=== PATIENT | female | born 1945 | race African-American/Black ===

== ENCOUNTER 2018-12-26 13:09 | Inpatient (IN) ==
[2018-12-26] MEDS ORDERED: ZOFRAN IV ONE (13:41)
[2018-12-26] MEDS ORDERED: NS 500 ML IV ONE (13:41)
--- NOTE | 2018-12-26 13:42 | PROVIDER DOCUMENTATION ---
HPI-Abdominal Pain/GI Problem - General Chief Complaint: Abdominal Pain Stated Complaint: ABD PAIN Time Seen by Provider: 12/26/18 13:35 Source: patient, family Allergies/Adverse Reactions: Patient Allergies Allergy/AdvReac Type Severity Reaction Status Date / Time No Known Allergies Allergy Verified 12/26/18 14:22 Home Medications: Home Medication List Medication Instructions Recorded Confirmed Last Taken Type NK [No Home Medications] 12/26/18 12/26/18 Unknown History - History of Present Illness-ABD Nature of Presenting Problems: 73yof presents to ED c/o abd pain with intermittent N/V and poor appetite x2 days. Family @ BS states pt was unable to eat today due to pain. She denies fever/chills/diarrhea/dysuria/cough/chest pain/back pain/dysuria. Abdominal Pain Onset Location: reports: generalized abdomen Pain Radiation: reports: no radiation Quality of Pain: reports: aching Onset/Duration: reports: gradual, 2 days ago Timing: reports: still present Activities at Onset: reports: none Exposure to sick contacts?: No Modifying Factors: improves with: eating Associated Symptoms: reports: nausea, vomiting. denies: cough, diarrhea, dizziness, fatigue, fever/chills, rash, shortness of breath, sensory/motor loss, syncope, weakness Last BM: 24 hours ago Dark Stools Present?: reports: none noticed Rectal Bleeding: reports: none Rectal Pain: reports: none Emesis Description: reports: none Bruising or Bleeding Gums?: No Similar Symptoms Previously?: No Recently seen or treated by another doctor?: No Review of Systems - Adult - REVIEW OF SYSTEMS - ADULT Constitutional: reports: no symptoms reported Eyes: reports: no symptoms reported Ears, Nose, Mouth & Throat: reports: no symptoms reported Cardiovascular: reports: no symptoms reported Respiratory: reports: no symptoms reported Gastrointestinal: reports: see HPI, abdominal pain, nausea, poor appetite, vomiting Genitourinary: reports: no symptoms reported Musculoskeletal: reports: no symptoms reported Integumentary: reports: no symptoms reported Neurological: reports: no symptoms reported Psychiatric: reports: no symptoms reported Endocrine: reports: no symptoms reported Hematologic/Lymphatic: reports: no symptoms reported Allergic/Immunologic: reports: no symptoms reported All Other Systems: Reviewed and Negative Past History - Adult - PAST MEDICAL HISTORY-ADULT Review of Records: reports: Old Records Reviewed, Nursing Assessment Review, Medications Reviewed, Social history reviewed & non-contributory. Major Childhood Illnesses: reports: denies history Cardiovascular: reports: denies history Respiratory: reports: bronchitis, pneumonia Gastrointestinal: reports: denies history Obstetrical/Gynecological: reports: denies history Genitourinary: reports: denies history Musculoskeletal: reports: denies history Neurological: reports: denies history Endocrine/Immune: reports: denies history Other Conditions: reports: denies history - PRIOR SURGERIES/PROCEDURES Surgical/Procedure History: reports: reviewed, not pertinent - IMMUNIZATION STATUS Childhood Immunizations: See Nurse Assessment Flu Vaccine: See Nurse Assessment - SOCIAL HISTORY Smoking: non-smoker Living Situation: family Physical Exam-General - CONSTITUTIONAL General Appearance: appears well, alert, no apparent distress - EYES Eyes: PERRL/EOMI, pink conjunctivae - HEAD, EARS, NOSE, MOUTH & THROAT HENMT: normocephalic/atraumatic, moist mucous membranes, normal ENT inspection - NECK Neck: non-tender, full range of motion, supple, normal inspection - RESPIRATORY Respiratory: chest non-tender, lungs clear, normal breath sounds, no pleuratic chest pain, no respiratory distress, no accessory muscle use - CARDIOVASCULAR Cardiovascular: normal peripheral pulses, regular rate, rhythm, no edema, no gallop, no JVD - GASTROINTESTINAL (ABDOMEN) Abdominal Exam: normal bowel sounds, soft, no organomegaly, tenderness (mild nonspecific upper abd tenderness with palpation, no RT/rigidity/distention) - LYMPHATIC Lymphatic: no adenopathy - MUSCULOSKELETAL Back Exam: normal inspection, no CVA tenderness, no vertebral tenderness Extremity: normal range of motion, non-tender, normal gait, normal inspection - SKIN Integumentary: normal color, normal turgor, warm/dry - NEUROLOGIC Neurologic: advanced practice psychiatric nurse II-XII nml as tested, grossly normal, no motor/sensory deficits - PSYCHIATRIC Psych/Mental Status: normal mood/affect, normal thought content, normal thought process, oriented x 3 Progress - PLAN OF CARE/RESULTS Progress/Plan/Lab Results: Vital Signs - 8 hr 12/26/18 13:21 Temperature 98.9 F Pulse Rate 87 Respiratory Rate 16 Blood Pressure 166/103 O2 Sat by Pulse Oximetry 95 Orders Category Date Time Status AMYLASE [CHEM] Stat Lab 12/26/18 13:26 Ordered CBC WITH DIFF [HEME] Stat Lab 12/26/18 13:26 Ordered COMPREHENSIVE METABOLIC PANEL [CHEM] Stat Lab 12/26/18 13:26 Uncollected LIPASE [CHEM] Stat Lab 12/26/18 13:26 Uncollected ua [URINALYSIS PL W/POSS RFLX CULT] [URINALYSIS] Stat Lab 12/26/18 13:26 Uncollected Result Diagrams: 12/26/18 15:18 12/26/18 15:18 - REASSESSMENT Reassessment #1 Time Reassessed: 15:07 (Awaiting lab results.) Reassessment #2 Time Reassessed: 15:43 (Received labs; pt with marked change in LFTs since prior visit. Given today's CC of N/V, poor po intake, and abd pain CT with IV contrast ordered.) Reassessment #3 Time Reassessed: 16:23 (Await[address] CT results. IV Rocephin ordered for UTI.) - CT/MRI 1 CT Study: Abdomen, Pelvis Impression: See EMR Report - CONSULTS/PCP/HOSPITALIST Notification #1 *Consult/PCP/Hospitalist*: dr rojas Time Discussed: 17:06 Consult Disposition: Will see in ED, Admit - CHANGE OF SHIFT REPORT (ED Provider) 1 Report Given and Care Transferred to:: Khushbu RODNEY Time of Transfer: 16:45 Items Pending: CT/MRI Results (CT Abd/Pelvis results pending.) Departure - Departure Date of Disposition Decision: 12/26/18 Time of Disposition Decision: 17:06 DIAGNOSIS: Hypokalemia, Abnormal liver function tests, Gallstones Abdominal pain Qualifiers: Abdominal location: generalized Qualified Code(s): R10.84 - Generalized abdominal pain Urinary tract infection Qualifiers: Urinary tract infection type: acute cystitis Hematuria presence: without hematuria Qualified Code(s): N30.00 - Acute cystitis without hematuria Vomiting Qualifiers: Vomiting type: unspecified Vomiting Intractability: non-intractable Nausea presence: with nausea Qualified Code(s): R11.2 - Nausea with vomiting, unspecified Disposition: ADMITTED INPATIENT 09 Certified Medical Emergency: Emergent Condition: Stable Referrals and Follow-Ups: None,PCP [Primary Care Provider] - Discharge Education: Steps to Quit Smoking, [id number] - Critical Care Note This patient required my direct & personal management of CC.: No Attestation - Physician/ JOVANA Attestation Patient care was provided by Advanced Practice Provider:: Yes Advanced Practice Provider:: Reena Dillard Advanced Practice Provider documentation review:: The Mid-level provider d ocumentation, treatment plan and medical decision making was reviewed by the physician who agrees with all treatment and medical decision making by the MLP. The physician spent face to face time with patient:: No Advanced Practice Provider documentation review:: Supervising physician onsite and consulted in the evaluation and care of this patient. The physician did not have a face to face encounter with the patient.
[2018-12-26 15:36] LABS: AGAP 11; ALBUMIN 3.6 g/dL (3.5-5.0); ALKALINE PHOSPHATASE 208 U/L (32-104); BUN 10 mg/dL (8-22); CALCIUM 8.7 mg/dL (8.8-10.2); CHLORIDE 100 mmol/L (98-107); COSMO 280; CREATININE 0.4 mg/dL (0.5-0.9); ESTIMATED GFR > 60; GLUCOSE 125 mg/dL (70-104); GOT 292 U/L (10-30); GPT 152 U/L (10-36); LIPASE 8 U/L (13-60); POTASSIUM 3.3 mmol/L (3.5-5.1); SODIUM 140 mmol/L (136-145); TCO2 29 mmol/L (25-35); TOTAL PROTEIN 7.4 g/dL (6.3-8.3)
[2018-12-26 15:37] LABS: BASO# 0.04 X1000 (0.0-0.2); BASO% 0.5 % (0.0-0.8); HEMATOCRIT 37.2 % (37.0-47.0); HEMOGLOBIN 12.9 g/dL (12.0-16.0); IMM GRAN# 0.03 X1000 (0.0-0.04); IMM GRAN% 0.4 % (0.0-0.5); LYMPH% 15.5 % (20.5-51.1); MCH 28.5 PG (27-31); MCHC 34.7 g/dL (33-37); MCV 82.1 FL (81-99); MONO# 0.83 X1000 (0.11-0.59); MONO% 9.9 % (1.7-9.3); MPV 9.6 FL (7.4-10.4); NEUT# 6.18 X1000 (1.4-6.5); NEUT% 73.7 % (42.2-75.2); PLT 267 X1000 (130-400); RBC 4.53 XMIL (4.2-5.4); RDW 15.5 % (11.5-14.5); WBC 8.38 X1000 (4.8-10.8)
[2018-12-26 15:53] LABS: BILIRUBIN URINE 2+ (NEGATIVE); BLOOD URINE 4+ (NEGATIVE); GLUCOSE URINE NEGATIVE (NEGATIVE); KETONE URINE 1+(Small) mg/dL (NEGATIVE); LEUKOCYTES URINE 1+ (NEGATIVE); NITRITE URINE NEGATIVE (NEGATIVE); PH URINE 6.5; PROTEIN URINE 1+(30 mg/dL) mg/dL (NEGATIVE); UROBILINOGEN URINE 12 mg/dL
[2018-12-26 15:54] LABS: CLARITY SL. CLOUDY (CLEAR); COLOR AMBER
[2018-12-26 16:10] LABS: URINE SOURCE CLEAN CATCH
[2018-12-26 16:11] LABS: URINE RBC TNTC /HPF (<10)
[2018-12-26 16:12] LABS: URINE EPITHELIAL CELLS >10 /HPF (<10)
[2018-12-26 16:14] LABS: URINE BACTERIA 2+ /HFP; URINE CAST NONE SEEN /LPF; URINE CRYSTAL URIC ACID PRESENT /HPF; URINE YEAST NONE SEEN /HPF
[2018-12-26] MEDS ORDERED: ROCEPHIN 1 GM in NS 50 ML IV ONE (16:22)
[2018-12-26] MEDS ORDERED: KLOR-CON PO ONE (16:22)
[2018-12-26 16:47] LABS: ANISOCYTOSIS OCCASIONAL; LYMPHS 13 % (21-51); MONO 4 % (1-9); SEGS 79 % (42-75)
--- NOTE | 2018-12-26 17:04 | Diag Imaging Result Doc PS360 ---
EXAM: CT ABD/PELVIS W/IV CONT ONLY HISTORY: vomiting, abdominal pain, abnormal LFTs TECHNIQUE: CT abdomen and pelvis with and without IV contrast. Patient's arms are by his side creating significant artifact. Noncontrasted images were submitted for the COMPARISON: None. FINDINGS: Noncontrasted images demonstrate cholelithiasis and choledocholithiasis with calcification in the region of the intrapancreatic common bile duct. Image 44 sequence 2. There is associated intra and extrahepatic biliary ductal dilatation to 11 mm. There is enhancement versus edema of the gallbladder wall and common bile duct. There are atelectatic changes in the bilateral lung bases. There is considerable streak artifact over the liver. Difficult to exclude a focal liver mass. There is bilateral nephrolithiasis. No hydronephrosis. There are hypodensities bilateral kidneys statistically simple cortical cysts. Pancreas, adrenal glands, and spleen are unremarkable. 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 There is a right lateral intraluminal thrombus within the aorta which extends into and occludes the right common iliac artery. Uterus is surgically absent. Small amount of free fluid within the pelvis. There is diverticulosis. No evidence for diverticulitis. Appendix appears normal. Bowel loops are normal caliber. No free air is appreciated. This report was discussed with Nati in the ED on 12/26/2018 at 5:00 PM with read back verification. IMPRESSION: 1.Choledocholithiasis producing marked intra and extrahepatic biliary ductal dilatation consistent with distal duct obstruction. Cholelithiasis with associated wall enhancement may indicate acute cholecystitis and cholangitis. 2.Streak artifact produces suboptimal visualization of the liver and focal liver masses are not excluded. 3.Consider right upper quadrant ultrasound. 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 5.Bilateral nephrolithiasis. No hydronephrosis. 6.Trace free fluid within the pelvis. This exam was performed using automated exposure control, adjustment of mA or kV according to patient size, and/or use of iterative reconstruction technique. Electronically signed by Cynthia Rollins 12/26/2018 5:02 PM
[2018-12-26] MEDS ORDERED: ZOFRAN IV PRN ×2 (17:16)
[2018-12-26] MEDS ORDERED: MORPHINE IV PRN (17:16)
[2018-12-26] MEDS: ZOSYN 3.375 GM in NS 50 ML IV SCH (17:36)
[2018-12-26] MEDS: NS 1,000 ML IV SCH (17:36)
--- NOTE | 2018-12-26 18:32 | HISTORY AND PHYSICAL ---
CHIEF COMPLAINT: Abdominal pain. HISTORY OF PRESENT ILLNESS: This is a 73-year-old female who is a poor historian and may have dementia, who was brought to the ER by her . He reports she has had complaints of right- sided abdominal pain for over a week, with persistent groaning, as well as intermittent nausea and vomiting. Her bowel movements have been normal. He has not noticed any shaking chills or fever. No known exacerbating or relieving factors. No known diarrhea or constipation. PAST MEDICAL HISTORY: None, according to him, except for dementia. PRIMARY CARE PHYSICIAN: She does not have a primary care physician. PAST SURGICAL HISTORY: Hysterectomy. HOME MEDICINES: None. ALLERGIES: No known drug allergies. FAMILY HISTORY: Reviewed and noncontributory. SOCIAL HISTORY: She smokes a pack of cigarettes a week. Denies alcohol or illicit drug use. REVIEW OF SYSTEMS: Really unobtainable as she seems quite confused. PHYSICAL EXAMINATION: VITAL SIGNS: Temperature 99.1 degrees, pulse 86, respirations 18, blood pressure 159/102, O2 saturation 95%. GENERAL: She is an elderly female who appears ill, but in no acute distress. HEENT: Normocephalic, atraumatic. Extraocular muscles intact. Pupils equal, round, reactive to light. Sclerae anicteric. Mucous membranes are dry. NECK: Supple. No thyromegaly. CARDIOVASCULAR: Regular rate and rhythm. RESPIRATORY: Bilateral breath sounds. No work of breathing. GASTROINTESTINAL: Soft, nondistended, diffusely tender. No rebound or guarding. No organomegaly or mass. EXTREMITIES: No clubbing, cyanosis, or edema. SKIN: Warm and dry. No rash. MUSCULOSKELETAL: Moves all extremities equally and well. LABORATORY: White blood cell count 8, hemoglobin 12.9, hematocrit 37, platelet count 267,000. Complete metabolic profile reviewed and notable for total bilirubin 5.2, AST 292, ALT 152, alkaline phosphatase 208, amylase 39, lipase 8. Urinalysis shows 2+ bacteria, 1+ white blood cells, but negative nitrite. IMAGING: Abdomen and pelvis CT scan shows cholelithiasis and choledocholithiasis. There is intra- and extrahepatic biliary ductal dilation. The gallbladder wall appears to be thickened as well as the common bile duct. There is a small amount of free fluid in the pelvis. No free air. Bowel loops are normal in caliber. The appendix is normal. No diverticulitis. Of note, there is also distal aortic ectasia with occluded right common iliac artery. ASSESSMENT AND PLAN: A 73-year-old female with acute cholecystitis and choledocholithiasis. She will be admitted, kept NPO, given normal saline, and started on Zosyn, as well as treating her pain and nausea. We will consult Gastroenterology for expected ERCP this admission. We will recheck her labs in the morning and plan laparoscopic cholecystectomy versus ERCP first tomorrow. I have discussed this with her and her , and he understands and agrees. cc: Jose Luis Kumari MD
[2018-12-26 19:52] LABS: AGAP 13; ALB/GLOB RATIO 0.9; ALBUMIN 3.4 g/dL (3.5-5.0); ALKALINE PHOSPHATASE 196 U/L (32-104); BASO# 0.03 X1000 (0.0-0.2); BASO% 0.4 % (0.0-0.8); BUN 9 mg/dL (8-22); CHLORIDE 101 mmol/L (98-107); COSMO 279; CREATININE 0.7 mg/dL (0.5-0.9); EOS# 0.02 X1000 (0.0-0.7); EOS% 0.2 % (0.0-10.0); ESTIMATED GFR > 60; GLUCOSE 118 mg/dL (70-104); GOT 240 U/L (10-30); GPT 145 U/L (10-36); HEMATOCRIT 37.4 % (37.0-47.0); HEMOGLOBIN 13.1 g/dL (12.0-16.0); IMM GRAN# 0.02 X1000 (0.0-0.04); IMM GRAN% 0.2 % (0.0-0.5); LYMPH# 1.28 X1000 (1.2-3.4); LYMPH% 15.4 % (20.5-51.1); MCH 28.4 PG (27-31); MCV 81.1 FL (81-99); MONO# 0.78 X1000 (0.11-0.59); MONO% 9.4 % (1.7-9.3); MPV 9.9 FL (7.4-10.4); NEUT# 6.18 X1000 (1.4-6.5); NEUT% 74.4 % (42.2-75.2); PLT 297 X1000 (130-400); POTASSIUM 3.6 mmol/L (3.5-5.1); RBC 4.61 XMIL (4.2-5.4); RDW 15.5 % (11.5-14.5); SODIUM 140 mmol/L (136-145); TCO2 26 mmol/L (25-35); TOTAL BILIRUBIN 5.31 mg/dL (0.20-1.00); TOTAL PROTEIN 7.4 g/dL (6.3-8.3); WBC 8.31 X1000 (4.8-10.8)
[2018-12-26] MEDS ORDERED: PNEUMOVAX 23 IM ONE (19:59)
[2018-12-26 21:04] LABS: URINE SOURCE CLEAN CATCH
[2018-12-26 21:09] LABS: BILIRUBIN URINE SMALL (NEGATIVE); BLOOD URINE MODERATE (NEGATIVE); COLOR YELLOW; GLUCOSE URINE NEGATIVE (NEGATIVE); KETONE URINE NEGATIVE (NEGATIVE); LEUKOCYTES URINE NEGATIVE (NEGATIVE); NITRITE URINE NEGATIVE (NEGATIVE); PH URINE 7.5; PROTEIN URINE TRACE mg/dL (NEGATIVE); TURBIDITY URINE CLEAR (CLEAR); UROBILINOGEN URINE 3 mg/dL (NORMAL)
[2018-12-26 21:11] LABS: UR EPITHELIAL CELLS <10 /HPF (<10); URINE BACTERIA NEGATIVE /HPF; URINE RBC 20-40 /HPF (<10); URINE WBC <10 /HPF (<10)
[2018-12-27] MEDS: ZOSYN 3.375 GM in NS 50 ML IV SCH ×5 (00:03→22:39)
[2018-12-27] MEDS: NS 1,000 ML IV SCH ×2 (05:25→22:38)
[2018-12-27 10:17] LABS: AGAP 12; ALB/GLOB RATIO 0.8; ALBUMIN 3.1 g/dL (3.5-5.0); ALKALINE PHOSPHATASE 192 U/L (32-104); BUN 9 mg/dL (8-22); CALCIUM 8.4 mg/dL (8.8-10.2); CHLORIDE 107 mmol/L (98-107); COSMO 286; CREATININE 0.7 mg/dL (0.5-0.9); ESTIMATED GFR > 60; GLUCOSE 106 mg/dL (70-104); GOT 161 U/L (10-30); GPT 122 U/L (10-36); POTASSIUM 3.6 mmol/L (3.5-5.1); SODIUM 144 mmol/L (136-145); TCO2 25 mmol/L (25-35); TOTAL BILIRUBIN 6.94 mg/dL (0.20-1.00); TOTAL PROTEIN 7.1 g/dL (6.3-8.3)
[2018-12-27] MEDS ORDERED: SODIUM CHLORIDE 0.9% ONE (11:58)
[2018-12-27] MEDS ORDERED: SENSORCAINE 0.5%-EPI 1:200,000 ONE (11:58)
[2018-12-27] MEDS ORDERED: LR 1,000 ML ONE (11:59)
[2018-12-27] MEDS ORDERED: DIPRIVAN 1% ONE (12:27)
[2018-12-27] MEDS ORDERED: XYLOCAINE-MPF 2% ONE (12:33)
[2018-12-27] MEDS ORDERED: ROBINUL ONE ×2 (12:33→16:46)
[2018-12-27] MEDS ORDERED: QUELICIN (DOSE) ONE (12:33)
[2018-12-27] MEDS ORDERED: FENTANYL ONE (12:43)
[2018-12-27] MEDS ORDERED: LOPRESSOR ONE (13:04)
--- NOTE | 2018-12-27 14:48 | GASTROENTEROLOGY CONSULTATION ---
DATE: 12/27/2018 ATTENDING PHYSICIAN: Dr. Kumari. PRIMARY CARE DOCTOR: None. REASON FOR CONSULTATION: Choledocholithiasis. HISTORY OF PRESENT ILLNESS: Ms. Aguilar is a 73-year-old female who was admitted on 12/26/2018 for abdominal pain in the right upper quadrant and radiating to the back. According to the patient, this pain has been going on for 1 week. She also has intermittent nausea and vomiting. She denies any vomiting blood. She denies any blood in the stools. She had imaging done in the hospital which showed evidence of choledocholithiasis, and intra and extrahepatic biliary ductal dilation. The CT scan also showed evidence of cholelithiasis. The gallbladder wall appears to be thickened as well as the common bile duct appears to be dilated. There was a small amount of free fluid in the pelvis. The patient also had evidence of distal aortic ectasia with occluded right common iliac artery. The patient was admitted by Dr. Kumari. He is planning for a cholecystectomy today. We will be on standby for possible ERCP. PAST MEDICAL HISTORY: None. PAST SURGICAL HISTORY: Hysterectomy. HOME MEDICATIONS: None. ALLERGIES: No known drug allergies. FAMILY HISTORY: Noncontributory. SOCIAL HISTORY: She smokes 1 pack of cigarettes a week. Denies a history of alcohol or illicit drug abuse. REVIEW OF SYSTEMS: Denies any fevers, rigors, or chills. Denies any chest pain or shortness of breath. Denies any vomiting blood. Does complain of abdominal pain, intermittent nausea, vomiting. Denies seeing blood in the stools. Denies any bowel changes. Denies any neurological complaints. PHYSICAL EXAMINATION: Vital Signs: Temperature of 99 degrees, pulse rate of 79, respiratory rate of 16, blood pressure 130/69, saturating 97% on room air. Body weight of 165 pounds. BMI 25.1 kg/m2. General Appearance: Moderately built, moderately nourished, lying in bed, in no acute distress. HEENT: No pallor. Icteric sclerae. Pupils equal, reactive to light. Neck: Supple. Abdomen: Discomfort in the right upper quadrant. No rebound or guarding. Extremities: No cyanosis, clubbing. Neurologic: Alert, awake, oriented x3. LABS: Hemoglobin and hematocrit are 13.1 and 37.4, white count of 8.31, platelet count of 97,000. Her sodium is 140, potassium 3.6, chloride 107, bicarb of 25, anion gap 12, BUN of 9, creatinine 0.7, glucose of 106, calcium is 8.4. AST 161, ALT 122, alkaline phosphatase 192, total protein 7.2, albumin 3.1, amylase of 39, lipase of 8. Urinalysis showing trace protein, moderate blood, small bilirubin, and 20 to 40 RBCs. Urine culture showing no growth. CT of the abdomen and pelvis showed atelectatic changes in the bilateral lung bases, considerable streak artifact over the liver, difficult to exclude a focal liver mass, bilateral nephrolithiasis, no hydronephrosis, simple cortical cysts noted in the kidneys, distal aortic ectasia to 2.5 cm. There is the right lateral intraluminal thrombus within the aorta which extends into and occludes the right common iliac artery. Uterus surgically absent. Small amount of free fluid in the pelvis. There is diverticulosis in the colon. Appendix appears normal. No free air was noted. There is evidence of intrahepatic and extrahepatic biliary ductal dilation up to 11 mm. There is evidence of cholelithiasis and choledocholithiasis with calcification in the intrapancreatic common bile duct. There is enhancement versus edema of the gallbladder wall and common bile duct. IMPRESSION AND PLAN: 1. Cholelithiasis. 2. Choledocholithiasis. 3. Jaundice. 4. Right upper quadrant pain, nausea, and vomiting. 5. 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 RECOMMENDATIONS: 1. She will continue on IV fluids. She is currently NPO. She is likely going for cholecystectomy today. She will continue on IV pain control, IV antiemetics, and IV antibiotics with Zosyn. She is going for cholecystectomy today. We will be on standby if needed for an ERCP tomorrow with Dr. Fuentes. The procedure of ERCP was explained to the patient and all questions were answered. The risks, benefits, and indications for ERCP were explained to the patient all questions were answered. 2. The above plans were discussed with the patient. All questions were answered. Please call us with any further questions. cc: MD Jose Luis Monteiro MD [facility]
[2018-12-27] MEDS ORDERED: ZEMURON ONE (15:27)
[2018-12-27] MEDS ORDERED: OFIRMEV 1000 MG/ISOTONIC SOLN 1,000 MG/100 ML BOTTLE ONE (15:41)
--- NOTE | 2018-12-27 16:42 | Diag Imaging Result Doc PS360 ---
OPERATIVE CHOLANGIOGRAM - 12/27/2018 INDICATION: GALLBLADDER TECHNIQUE: The exam was performed with the patient's surgeon. Two images were submitted. COMPARISON: CT abdomen pelvis 12/26/2018 FINDINGS: Contrast was infused into the common bile duct. The intrahepatic bile ducts are well opacified. There is severe dilation of the entire intrahepatic bile ducts. No obvious filling defect within the common bile duct. There is good reflux of contrast into the duodenum. There is also reflux into the main pancreatic duct which appears normal. IMPRESSION: Significant, diffuse dilation of all the intrahepatic bile ducts from chronic obstruction. No focal abnormality of the common bile duct. Electronically signed by Toribio Reynolds 12/27/2018 4:40 PM
[2018-12-27] MEDS ORDERED: NEOSTIGMINE ONE (16:47)
[2018-12-27 17:34] LABS: URINE SOURCE CATH
[2018-12-27 17:37] LABS: BILIRUBIN URINE MODERATE (NEGATIVE); BLOOD URINE MODERATE (NEGATIVE); COLOR YELLOW; GLUCOSE URINE NEGATIVE (NEGATIVE); KETONE URINE 40 mg/dL (NEGATIVE); LEUKOCYTES URINE NEGATIVE (NEGATIVE); NITRITE URINE NEGATIVE (NEGATIVE); PROTEIN URINE TRACE mg/dL (NEGATIVE); SP GRAVITY URINE 1.016; TURBIDITY URINE CLEAR (CLEAR); UR EPITHELIAL CELLS <10 /HPF (<10); URINE BACTERIA NEGATIVE /HPF; URINE RBC <10 /HPF (<10); URINE WBC <10 /HPF (<10); UROBILINOGEN URINE 2 mg/dL (NORMAL)
[2018-12-27] MEDS: MORPHINE IV PRN (18:53)
--- NOTE | 2018-12-27 19:52 | OPERATIVE NOTE ---
PROCEDURE DATE: 12/26/2018 PREOPERATIVE DIAGNOSES: 1. Acute cholecystitis next. 2. Choledocholithiasis. POSTOPERATIVE DIAGNOSIS: 1. Acute cholecystitis next. 2. Choledocholithiasis PROCEDURES: 1. Laparoscopic converted to open cholecystectomy with operative cholangiogram. 2. Open common bile duct exploration with stone retrieval. SURGEON: 1. Jose Luis Kumari MD. MECHANICAL ENGINEERING LECTURER: 1. Seb Perez MD. 2. Mena Larson MS 3. ANESTHESIA: General. ESTIMATED BLOOD LOSS: 200 mL. COMPLICATIONS: None apparent. SPECIMENS: Gallbladder and stones. FINDINGS: The gallbladder was acutely inflamed with a large stone in the wound. There was also a large stone impacted in the common duct. DRAINS: 1. One #19 Gael. 2. One 18-Swedish T-tube TECHNIQUE: The patient was brought to the operating room and placed supine on the table. General anesthesia was induced. She was prepped and draped in usual sterile fashion. 0.25% Marcaine with epinephrine was used to anesthetize our incisions. An 11 mm incision was made above the umbilicus. The fascia was exposed and incised sharply. Entry into the peritoneal cavity was obtained under direct vision with the Optiview device. Pneumoperitoneum was established. The camera was inserted. There was no evidence of injury to underlying structures. She was placed in reverse Trendelenburg. Three 5 mm incision ports were placed across the epigastric right upper quadrant per usual routine. The dome of the gallbladder was grasped by the collections assistant with an Allis clamp and lifted up superiorly. The inflammation of the gallbladder wall was intense. I began with using a Kittner dissector to try to open the peritoneum over the triangle of Calot and then for quite some time I worked to identify the critical view. I was able to identify the cystic artery and a small pulsatile structure entering directly into the gallbladder. It was clipped proximally and distally and incised with scissors; however, I could not clearly define the cystic duct/common duct anatomy and decided to open. I made an oblique right upper quadrant incision using 2 of our port sites that we had already established. The ports were removed. The abdomen was desufflated. The subcutaneous tissue was divided with cautery. The fascia was opened with cautery, safely entering the abdominal cavity. Dr. Perez joined me during this portion of the case and was very helpful with identifying the critical anatomy as well as well as assisting with the common duct exploration and repair over a T-tube. I proceeded to take the gallbladder in a dome-down fashion with cautery. The cystic duct was very small and friable and was seen to tease away from the common duct. I could feel the large stone impacted in the common duct just distal to the presumed cystic duct junction I decided to go ahead and do a common duct exploration and remove the stone. A ductotomy was made with a 15 blade over the stone, and the stone was milked out of the duct. I then selected an 18-Swedish T-Tube and placed it into the duct after trimming the limbs of the T. I should also point out that we did ligate the presumed cystic duct with 3-0 silk proximally and divided it distally with scissors and passed the gallbladder off the field. I then injected saline through the G-tube into the duct. There appeared to be leakage of saline proximally from the presumed cystic duct/common duct junction in this area. I repaired the cystic duct with interrupted 4-0 Prolene. I then closed the cystic duct around the T- tube with interrupted 4-0 Prolene. I then injected saline again. There did not appear to be any significant leakage. At this point we then performed a cholangiogram and there was flow of contrast seen entering all the hepatic radicals, as well as flow of contrast filling up the distal common duct entering the duodenum. There were no more filling defects. The common and hepatic ducts appeared to be chronically dilated. At this point, we prepared for closure. I washed out the abdomen and removed all laparotomy pads and made sure the laparotomy pad and instrument counts were correct. I brought in a 19 Gael drain through the lateral port site incision and laid it adjacent to the duct along the right pericolic gutter. The T-tube end was brought out through a separate incision inferior to the main incision. These 2 drains were anchored to the skin with 2- 0 nylon x2. I then closed the posterior fascia and peritoneum with a running #1 Vicryl and the anterior fascia a running #1 looped Maxon. The skin was closed with skin clips including the umbilical skin. She was awakened in stable condition and transferred to the recovery room without apparent complication. cc: Jose Luis Kumari MD [facility]
[2018-12-28] MEDS: MORPHINE IV PRN (04:36)
[2018-12-28] MEDS: ZOSYN 3.375 GM in NS 50 ML IV SCH ×3 (04:36→18:50)
[2018-12-28 05:45] LABS: HEMATOCRIT 30.3 % (37.0-47.0); HEMOGLOBIN 10.4 g/dL (12.0-16.0); MCH 28.8 PG (27-31); MCHC 34.3 g/dL (33-37); MCV 83.9 FL (81-99); MPV 10.6 FL (7.4-10.4); RBC 3.61 XMIL (4.2-5.4); RDW 15.3 % (11.5-14.5); WBC 9.87 X1000 (4.8-10.8)
[2018-12-28 05:56] LABS: AGAP 11; ALBUMIN 2.9 g/dL (3.5-5.0); ALKALINE PHOSPHATASE 150 U/L (32-104); BUN 11 mg/dL (8-22); CALCIUM 8.2 mg/dL (8.8-10.2); CHLORIDE 109 mmol/L (98-107); COSMO 287; CREATININE 0.5 mg/dL (0.5-0.9); ESTIMATED GFR > 60; GLUCOSE 107 mg/dL (70-104); GOT 139 U/L (10-30); GPT 101 U/L (10-36); POTASSIUM 3.3 mmol/L (3.5-5.1); SODIUM 144 mmol/L (136-145); TCO2 24 mmol/L (25-35); TOTAL BILIRUBIN 3.23 mg/dL (0.20-1.00); TOTAL PROTEIN 5.9 g/dL (6.3-8.3)
[2018-12-28] MEDS ORDERED: ZOSYN ONE (08:40)
[2018-12-28] MEDS: PERIDEX MT SCH ×2 (10:29→22:16)
[2018-12-28] MEDS: NS 1,000 ML IV SCH (10:30)
--- NOTE | 2018-12-28 10:47 | GENERAL SURGERY PROGRESS NOTE ---
DATE: 12/28/2018 SUBJECTIVE: The patient is not very talkative this morning, but no acute events were recorded overnight. OBJECTIVE: Vital Signs: She is afebrile. Vital signs are stable. General: She is awake, alert, no acute distress. Gastrointestinal: Soft, appropriately tender. Incisional dressing is clean and dry. ELIZ drain is serosanguineous. T-Tube is bilious. The outputs are not recorded. LABORATORY: White blood cell count 9.8, hemoglobin 10, hematocrit 30. Electrolytes reviewed and notable for decreasing LFTs, total bilirubin 3.2, AST 139, ALT 101, alkaline phosphatase 150. ASSESSMENT AND PLAN: A 73-year-old female postoperative day 1 open cholecystectomy with common bile duct exploration. We will advance her diet as tolerated. Consult Physical Therapy to work with her and keep her drains in throughout this admission. cc: Jose Luis Kumari MD
--- NOTE | 2018-12-28 23:22 | PROVIDER PROGRESS NOTE ---
Progress Note S: Patient underwent O: Last Vital Signs Temp 98.1 F 12/29/18 04:15 Pulse 75 12/29/18 04:15 Resp 20 12/29/18 04:15 BP 141/79 12/29/18 04:15 Pulse Ox 96 12/29/18 04:15 Height 5 ft 8 in Weight 165 lb GEN: awake, alert, NAD HEENT: mild icterus, EOMI, MMM NECK: supple, no JVD CV: RRR, no murmurs PULM: CTAB ABD: dressing RUQ c/d/i, ELIZ drain in place, ND, TTP throughout with voluntary guarding, hypoactive BS EXT: no cce NEURO: nonfocal LABS: 12/28/18 12/28/18 04:52 04:52 WBC 9.87 Hgb 10.4 L D Plt Count 226 Sodium 144 Potassium 3.3 L Chloride 109 H Carbon Dioxide 24 L BUN 11 Creatinine 0.5 Total Bilirubin 3.23 H AST 139 H ALT 101 H Alkaline Phosphatase 150 H Total Protein 5.9 L Albumin 2.9 L 12/27 POSTOPERATIVE DIAGNOSIS: 1. Acute cholecystitis next. 2. Choledocholithiasis PROCEDURES: 1. Laparoscopic converted to open cholecystectomy with operative cholangiogram. 2. Open common bile duct exploration with stone retrieval. IMPRESSION AND PLAN: 1. Cholelithiasis. 2. Choledocholithiasis. 3. Jaundice. 4. Right upper quadrant pain, nausea, and vomiting. 5. 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 OPERATIVE CHOLANGIOGRAM - 12/27/2018 INDICATION: GALLBLADDER TECHNIQUE: The exam was performed with the patient's surgeon. Two images were submitted. COMPARISON: CT abdomen pelvis 12/26/2018 FINDINGS: Contrast was infused into the common bile duct. The intrahepatic bile ducts are well opacified. There is severe dilation of the entire intrahepatic bile ducts. No obvious filling defect within the common bile duct. There is good reflux of contrast into the duodenum. There is also reflux into the main pancreatic duct which appears normal. IMPRESSION: Significant, diffuse dilation of all the intrahepatic bile ducts from chronic obstruction. No focal abnormality of the common bile duct. A/P: Ms. Macey Aguilar is a 73 year old woman who was admitted with acute cholecystitis and choledocholithiasis who is s/p POD#1 of open cholecystectomy with operative cholangiogram & common bile duct exploration with stone retrieval. Her LFTs are decreased this AM. She is on zosyn and tolerating clear liquids. # Acute cholecystitis: s/p open CCY: defer mgmt to surgery; on abx # Choledocholithiasis: s/p CBD exploration and stone removal. IOC negative for residual stones; notable intrahepatic dilation; trending LFTs; if LFTs do not continue to improve, may need MRCP # Anemia: no overt GI bleeding Will follow with you.
[2018-12-29] MEDS: ZOSYN 3.375 GM in NS 50 ML IV SCH ×4 (02:03→20:20)
[2018-12-29 05:57] LABS: BASO# 0.03 X1000 (0.0-0.2); BASO% 0.2 % (0.0-0.8); EOS# 0.25 X1000 (0.0-0.7); HEMATOCRIT 27.8 % (37.0-47.0); HEMOGLOBIN 9.7 g/dL (12.0-16.0); IMM GRAN# 0.07 X1000 (0.0-0.04); IMM GRAN% 0.6 % (0.0-0.5); LYMPH# 2.12 X1000 (1.2-3.4); LYMPH% 16.9 % (20.5-51.1); MCHC 34.9 g/dL (33-37); MCV 83.2 FL (81-99); MONO# 1.33 X1000 (0.11-0.59); MONO% 10.6 % (1.7-9.3); MPV 11.5 FL (7.4-10.4); NEUT# 8.78 X1000 (1.4-6.5); NEUT% 69.7 % (42.2-75.2); PLT 225 X1000 (130-400); RBC 3.34 XMIL (4.2-5.4); RDW 15.5 % (11.5-14.5); WBC 12.58 X1000 (4.8-10.8)
[2018-12-29 06:14] LABS: LYMPHS 20 % (21-51); SEGS 74 % (42-75)
[2018-12-29 06:20] LABS: AGAP 8; BUN 8 mg/dL (8-22); CALCIUM 8.4 mg/dL (8.8-10.2); CHLORIDE 113 mmol/L (98-107); COSMO 293; CREATININE 0.5 mg/dL (0.5-0.9); ESTIMATED GFR > 60; GLUCOSE 109 mg/dL (70-104); SODIUM 148 mmol/L (136-145); TCO2 27 mmol/L (25-35)
[2018-12-29] MEDS: NS 1,000 ML IV SCH ×2 (09:25→16:55)
[2018-12-29] MEDS: PERIDEX MT SCH ×2 (09:26→20:21)
[2018-12-29] MEDS ORDERED: ZOSYN ONE (13:04)
--- NOTE | 2018-12-29 13:25 | GENERAL SURGERY PROGRESS NOTE ---
DATE: 12/29/2018 SUBJECTIVE: No fevers. No tachycardia. She is ambulating in the room. Her abdomen is soft. White count is 12. Hematocrit is 27. Bilirubin down trending yesterday. Creatinine stable. No LFTs today. Her T-tube has bile. Her ELIZ drain is clear. ASSESSMENT/PLAN: 73-year-old female status post open cholecystectomy, common bile duct exploration. Continue current management with her drains. Continue T-tube for now. She is on clear liquids. We will keep this going as well. She is on Zosyn. I will start her on Lovenox. cc: MD Jose Luis Solo MD
[2018-12-29] MEDS: LOVENOX SUBQ SCH (16:56)
--- NOTE | 2018-12-29 18:57 | GASTROENTEROLOGY PROGRESS NOTE ---
DATE: 12/29/2018 SUBJECTIVE: The patient is resting in bed. Her family is at bedside. The patient denies any nausea or vomiting. She is on a clear liquid diet. She has had no bowel movement today. Vital signs: Temperature 99.4, pulse 79, respiratory rate 20, blood pressure 152/81, saturating 98% on room air. Body weight of 165 pounds. BMI 25.1 kg/m2. General: Lying in bed, in no acute distress. HEENT: Pale conjunctivae. Mild icterus. Neck: Supple. Abdomen: Surgical dressing in place. She has 2 drains coming out of the abdomen. Extremities: No cyanosis or clubbing. Neurologic: She is awake and alert. Answers some questions. LABS: Hemoglobin and hematocrit is 9.7 and 27.8, white count of 12.5 and platelet count of 225. Sodium 140, potassium 3.0, chloride 113, bicarb 27.9. BUN of 8, creatinine 0.5 glucose 109, calcium 8.4. Her liver enzymes were not checked today. We will recheck them tomorrow morning. Urine culture showing mixed shai. IMPRESSION/PLAN: 1. Acute cholecystitis status post open cholecystectomy. This is being managed by General Surgery. 2. Choledocholithiasis status post common bile duct exploration and stone removal. She has a G- tube in place which is draining bile. She is being followed by General Surgery. 3. Elevated liver enzymes. We will check liver enzymes in the morning. 4. Anemia. Watch for now. We will continue on proton pump inhibitors for gastrointestinal prophylaxis. 5. Leukocytosis. She is on Zosyn. 6. Deep venous thrombosis prophylaxis with Lovenox. 7. We will sign off at this moment. We will follow up on the patient in the clinic within 2 weeks of discharge. The above plan was discussed with the patient and family at bedside. All questions answered. Please call us with any further questions. cc: MD Jose Luis Monteiro MD MTDD
[2018-12-30] MEDS: ZOSYN 3.375 GM in NS 50 ML IV SCH ×4 (02:49→19:59)
[2018-12-30 06:23] LABS: ALB/GLOB RATIO 0.7; ALBUMIN 2.4 g/dL (3.5-5.0); DIRECT BILIRUBIN 0.5 mg/dL (0.00-0.20); TOTAL BILIRUBIN 1.39 mg/dL (0.20-1.00)
[2018-12-30] MEDS: PROTONIX PO SCH (06:24)
[2018-12-30] MEDS: LOVENOX SUBQ SCH (10:45)
[2018-12-30] MEDS: NS 1,000 ML IV SCH ×2 (12:25→12:28)
[2018-12-30] MEDS: PERIDEX MT SCH ×2 (12:27→19:59)
--- NOTE | 2018-12-30 14:32 | GENERAL SURGERY PROGRESS NOTE ---
DATE: 12/30/2018 SUBJECTIVE: Feels okay. No fevers. No tachycardia. OBJECTIVE: Blood pressure 155/97. T-tube is putting out bile. ELIZ drain serosanguineous. Abdomen is soft. LABORATORY: LFTs obtained today show continued improvement in her bilirubin of 1.39 with downtrending of her AST, ALT. ASSESSMENT AND PLAN: This is a 73-year-old female status post open cholecystectomy with common bile duct exploration. She is doing okay. We will work on her mobility today. She is ambulating with physical therapy. Remove her Up catheter. cc: MD Jose Luis Solo MD
[2018-12-30] MEDS: CLINIMIX E 4.25%-5% SOLUTION 1,000 ML IV SCH (17:23)
--- NOTE | 2018-12-30 18:17 | GASTROENTEROLOGY PROGRESS NOTE ---
DATE: 12/30/2018 Dr. Kumari. SUBJECTIVE: The patient is currently resting in bed. She is recovering from recent surgery. She had open cholecystectomy and common bile duct exploration and removal of common bile duct stone. She has NG tube in place and ELIZ drain in place. She has poor oral intake. She has not passed any flatus. She is appropriately complaining of discomfort in the abdomen from recent surgery. Her liver enzymes are trending down. Vitals: Temperature 97.6, pulse of 75, respiratory 20, blood pressure 149/78, saturating 98%, body weight of 165 pounds, BMI 25.1 kg per meter squared. General Appearance: Moderately built lying in bed in no acute distress. HEENT: Pale conjunctiva, mild icterus. Neck: Supple. Abdomen: Abdominal wound dressing in place. The ELIZ drain in place and a T tube in place. Appropriately tender in the abdomen from recent surgery. No guarding. Extremities: No cyanosis, clubbing. Neuro: She is alert, awake, answers simple questions. LABS: Her total bilirubin is 1.39, direct of 0.5, AST 75, ALT 51, alkaline phos 104, total protein is 6, albumin of 2.4. Urine shai on 12/26 showed mixed shai. Urine culture showing mixed shai. IMPRESSION AND PLAN: 1. Acute cholecystitis status post open cholecystectomy. This is managed by general surgery. Dr. Kumari is on board. 2. Choledocholithiasis status post common bile duct exploration, stone removal. She has a T- tube in place which is draining bile, she is being followed by general surgery. 3. Liver enzymes trending down and likely secondary to above cholecystitis and choledocholithiasis and recent surgery. 4. Anemia. Continue to watch for now, transfuse as needed. 5. Gastrointestinal prophylaxis with PPIs. 6. Leukocytosis. She is on Zosyn. 7. Deep venous thrombosis prophylaxis with Lovenox. 8. Since her liver enzyme trending down and she is recovering we will sign off at this time. Patient will follow up in the clinic in 6 weeks after discharge to check on her liver enzymes. The patient has malnutrition, she is recovering from surgery, will start on Clinimix once daily, hopefully her oral intake is improved and then the primary care team can discontinue the Clinimix at that time. The above plans with the patient and family at bedside and all questions answered also the nursing staff. Please call with any further questions. cc: MD Jose Luis Monteiro MD [facility]
[2018-12-30] MEDS ORDERED: MORPHINE IV PRN (19:15)
[2018-12-31] MEDS: ZOSYN 3.375 GM in NS 50 ML IV SCH (04:32)
[2018-12-31] MEDS: CLINIMIX E 4.25%-5% SOLUTION 1,000 ML IV SCH ×2 (06:07→21:03)
[2018-12-31] MEDS: PROTONIX PO SCH (06:09)
[2018-12-31] MEDS ORDERED: ULTRAM PO PRN (09:15)
--- NOTE | 2018-12-31 09:48 | GENERAL SURGERY PROGRESS NOTE ---
DATE: 12/31/2018 SUBJECTIVE: The patient is doing better with less pain. She is tolerating clear liquid diet. She is ambulating and voiding. OBJECTIVE: Vital Signs: She is afebrile. Vital signs are stable. General: She is awake, alert, oriented x3. No acute distress. Cardiovascular: Regular rate and rhythm. Respiratory: Bilateral breath sounds. No work of breathing. Abdomen: Soft, nondistended. Appropriately tender. Incisional dressing is clean and dry. ELIZ drain is serosanguineous. T-Tube is bilious. ELIZ output is 10 mL. T-tube output is 720 mL. LABORATORY DATA: None today. Yesterday, total bilirubin 1.4, AST 75, ALT 51, alkaline phosphatase 104. ASSESSMENT AND PLAN: A 73-year-old female postoperative day 4 open cholecystectomy with common bile duct exploration and stone extraction. We will advance her diet today if she tolerates it. She will be discharged with instructions to keep her ELIZ and T tube at least 1 more week. cc: Jose Luis Kumari MD
[2018-12-31] MEDS: PERIDEX MT SCH ×2 (10:29→20:13)
[2018-12-31] MEDS: LOVENOX SUBQ SCH (10:29)
--- NOTE | 2018-12-31 11:52 | Diag Imaging Result Doc PS360 ---
EXAM: CHOLANGIOGRAM PERCUT TRANS 12/31/2018 HISTORY: evaluate common duct for leak TECHNIQUE: T-tube cholangiogram, four images, one minute nine seconds fluoroscopy time, 1992.8 cGy. COMMENT: Contrast was injected through the T-tube demonstrating the entire common bile and common hepatic ducts, and intrahepatic radicles, as well as the distal portion of the pancreatic duct. There are no apparent stones. No leakage of contrast is demonstrated. IMPRESSION: No evidence of bile leak. Electronically signed by Willis Smalls 12/31/2018 11:50 AM
[2018-12-31 12:40] LABS: HEPATITIS PROFILE ACUTE SEE COMMENTS
[2019-01-01] MEDS: PROTONIX PO SCH ×2 (05:43→12:43)
[2019-01-01] MEDS: CLINIMIX E 4.25%-5% SOLUTION 1,000 ML IV SCH ×2 (09:30→22:40)
--- NOTE | 2019-01-01 10:01 | GENERAL SURGERY PROGRESS NOTE ---
DATE: 01/01/2019 SUBJECTIVE: The patient overall is doing pretty well. She is eating a little bit but not much. She can get out of bed with assistance but is weak. She remains somewhat confused. OBJECTIVE: Vital signs: She is afebrile. Vital signs are stable. General: She is awake and alert and mildly confused but cooperative. Cardiovascular: Regular rate and rhythm. Respiratory: No work of breathing. Gastrointestinal: Soft, appropriately tender. Incision is clean, dry, and intact. ELIZ drain is serosanguineous. T-Tube is bilious output. LABORATORY DATA: None today. IMAGING: Her T-tube cholangiogram yesterday showed normal filling of the biliary tree without any stones or leakage of contrast. ASSESSMENT AND PLAN: A 73-year-old female status post open cholecystectomy and open bile duct exploration for stone removal. She is improved. She is approaching discharge. She is weak, she has dementia and her indicates that he does not think he can take care of her at this time, so I will contact Social Work for referral to rehab at discharge. cc: Jose Luis Kumari MD
--- NOTE | 2019-01-01 11:26 | Diag Imaging Result Doc PS360 ---
EXAM: CHEST-1 VIEW 01/01/2019 HISTORY: REHAB TECHNIQUE: AP portable upright at 1117 COMMENT: There is cardiomegaly. The basilar opacity which was present on 05/02/2017 on the left has improved but there is still some opacity over the left hemidiaphragm. The right costophrenic angle is sharper than on the previous study. IMPRESSION: Atelectasis versus fibrosis in the left lower lobe. Electronically signed by Willis Smalls 01/01/2019 11:24 AM
[2019-01-01] MEDS: LOVENOX SUBQ SCH (12:51)
[2019-01-01] MEDS: PERIDEX MT SCH ×2 (12:52→21:48)
--- NOTE | 2019-01-01 22:36 | PROVIDER PROGRESS NOTE ---
Progress Note S: No acute overnight events. Tolerating diet. No N/V/F, CP, SOB. Post-surgical abdominal pain controlled. O: Last Vital Signs Temp 98.2 F 01/01/19 20:24 Pulse 64 01/01/19 21:34 Resp 18 01/01/19 21:34 BP 139/64 01/01/19 20:24 Pulse Ox 94 L 01/01/19 21:34 Height 5 ft 8 in Weight 165 lb GEN: awake, alert, NAD HEENT: icterus improving, EOMI, MMM NECK: supple, no JVD CV: RRR, no murmurs PULM: CTAB ABD: dressing RUQ c/d/i, NT/ND EXT: no cce NEURO: nonfocal LABS: none A/P: Ms. Macey Aguilar is a 73 year old woman who was admitted with acute cholecystitis and choledocholithiasis who is s/p open cholecystectomy with operative cholangiogram & common bile duct exploration with stone retrieval. Her LFTs were downtrending on last check suggesting no further CBD stones. # Acute cholecystitis: s/p open CCY: defer mgmt to surgery; s/p abx # Choledocholithiasis: s/p CBD exploration and stone removal. IOC negative for residual stones; notable intrahepatic dilation; LFT downtrended on last check # Anemia: no overt GI bleeding Follow-up in GI clinic in 2-4 weeks to recheck LFTs to ensure normalization. Will sign off. Please call with questions.
[2019-01-02] MEDS: PROTONIX PO SCH (06:02)
[2019-01-02] MEDS: PERIDEX MT SCH (09:35)
[2019-01-02] MEDS: LOVENOX SUBQ SCH (09:35)
[2019-01-02] MEDS: CLINIMIX E 4.25%-5% SOLUTION 1,000 ML IV SCH (14:02)
--- NOTE | 2019-01-02 22:13 | GENERAL SURGERY PROGRESS NOTE ---
DATE: 01/02/2019 SUBJECTIVE: The patient apparently is eating very little, but not vomiting. She did get up and walk today. OBJECTIVE: She is afebrile. Vital signs are stable.General: She is a awake and alert, in no acute distress but not particularly cooperative, either. Gastrointestinal: Soft, nondistended. Appropriately tender. Incision is clean, dry and intact. T-tube has bilious drainage. The ELIZ drain has serosanguineous drainage. LABORATORY DATA: None today. ASSESSMENT AND PLAN: A 73-year-old female status post open cholecystectomy with common bile duct exploration, and removal of stone in the bile duct. She is recovering slowly. She continues to have baseline dementia. She has poor oral intake and is deconditioned. We are planning discharge to rehab once approved and a bed is available. She will keep her T-tube and ELIZ drain in for at least 1 more week. cc: Jose Luis Kumari MD
[2019-01-03] MEDS: CLINIMIX E 4.25%-5% SOLUTION 1,000 ML IV SCH ×3 (04:26→12:59)
[2019-01-03] MEDS: PERIDEX MT SCH ×3 (04:26→20:29)
[2019-01-03] MEDS: PROTONIX PO SCH (06:20)
[2019-01-03] MEDS: LOVENOX SUBQ SCH (09:29)
--- NOTE | 2019-01-03 13:23 | GENERAL SURGERY PROGRESS NOTE ---
DATE: 01/03/2019 SUBJECTIVE: The patient is doing okay. No acute events overnight. OBJECTIVE: General: She is awake and alert. No acute distress. GI: Soft. Appropriately tender. Incision is clean, dry, and intact. ELIZ drain serosanguineous, T-tube bilious. The ELIZ drain output is 10. The T-tube output is 460. ASSESSMENT AND PLAN: A 73-year-old female status post open cholecystectomy with common bile duct exploration and removal of stone. She has baseline dementia. She seems to be doing okay, at her baseline now but with poor oral intake. I am going to clamp her T-tube and observe for any worsened drainage from the ELIZ drain overnight. If that is stable, we will plan discharge to rehab once a bed is available. cc: Jose Luis Kumari MD
[2019-01-04] MEDS: PROTONIX PO SCH ×2 (05:49→07:33)
[2019-01-04 07:34] VITALS: BP 139/68
[2019-01-04] MEDS: PERIDEX MT SCH (09:11)
--- NOTE | 2019-01-04 09:50 | GENERAL SURGERY PROGRESS NOTE ---
DATE: 01/04/2019 SUBJECTIVE: The patient had no acute events overnight. She is doing well. She is having less pain. OBJECTIVE: She is afebrile. Vital signs are stable.General: She is awake, alert, oriented x3. No acute distress. Gastrointestinal: Soft, nondistended, appropriately tender. Incision is clean, dry, and intact. T-tube has bilious drainage. The J-tube has serosanguineous and no bile. ASSESSMENT AND PLAN: A 73-year-old female status post open cholecystectomy with common bile duct exploration and placement of a T-tube. We are discharging her to rehab today. She will keep her T-tube clamped and her ELIZ drain will remain on bulb suction. We will see her back in a week to potentially remove her tubes and follow up on her progress. cc: Jose Luis Kumari MD
--- NOTE | 2019-01-04 09:55 | DISCHARGE SUMMARY ---
ADMISSION DATE: 12/26/2018 DISCHARGE DATE: 01/04/2019 ADMITTING PHYSICIAN: Dr. Jose Luis Kumari. CONSULTANTS: Dr. Stanley Manriquez with Gastroenterology. PROCEDURES: Open cholecystectomy with common bile duct exploration and stone extraction. ADMITTING DIAGNOSES: 1. Acute cholecystitis and choledocholithiasis. 2. History of dementia. DISCHARGE DIAGNOSES: 1. Acute cholecystitis and choledocholithiasis. 2. History of dementia. HOSPITAL COURSE: This 73-year-old female presented on 12/26/2018 and was admitted and started on broad-spectrum antibiotics. She underwent laparoscopic converted to open cholecystectomy on 12/27/2018 with removal of a common duct stone and placement of a ELIZ drain and T-tube. She slowly recovered over the next week with gradual improvement in her diet, although her oral intake is still quite poor. She did improve some with her activity and we felt like she was approaching rehab after several days and a consult was initiated for rehab placement. She was requiring physical therapy. She was weak and deconditioned and not able to move around without assistance. She also has a poor appetite. Throughout her postoperative course, her vital signs have been stable. Her LFT significantly improved from a high total bilirubin of 6.9 to 1.4 on 12/30/2018. Once her bed was approved, I did clamp the T-tube on 01/03/2019 and on 01/04 there was no bilious output coming out of the ELIZ drain. INSTRUCTIONS: She will do physical and occupational therapy at rehab as tolerated. We will keep the T-tube clamped and leave the ELIZ drain to bulb suction. Those need to be protected and not inadvertently pulled out. She will see Dr. Kumari back in 1 to 2 weeks to follow up on her course and to remove the tubes in his office. Diet is regular as tolerated. She may sponge bathe. DISCHARGE MEDICATIONS: Ultram 50 mg p.o. 1 q.6 hours as needed for pain. cc: Jose Luis Kumari MD
[2019-01-04] MEDS: LOVENOX SUBQ SCH (10:23)
== END 2019-01-04 11:25 | DRG 412 ==
LOC: P.ED 13:09 → 4N 17:33
PROVIDERS: ADMIT Surgery; ATTEND Surgery